=== PATIENT | female | born 1960 | race American Indian/Alaskan Native ===

== ENCOUNTER 2018-02-03 01:12 | Emergency (ER) | payer BC ==
[2018-02-03] MEDS ORDERED: NACL 0.9% 1000 ML 1,000 ML IV ONE (03:20)
[2018-02-03] MEDS ORDERED: TYLENOL ONE (03:27)
[2018-02-03] MEDS ORDERED: TYLENOL PO ONE (03:27)
[2018-02-03 03:38] LABS: Basophils # (Auto) 0.1 K/mm3 (0.0-0.1); Basophils % (Auto) 0.5 % (0.0-1.8); Eosinophils # (Auto) 0.1 K/mm3 (0.0-0.4); Eosinophils % (Auto) 0.9 % (0.0-4.3); Hematocrit 42.3 % (30.3-42.9); Hemoglobin 13.7 gm/dl (10.1-14.3); Lymphocytes # (Auto) 3.4 K/mm3 (1.2-5.4); Lymphocytes % (Auto) 26.3 % (13.4-35.0); Mean Corpuscular HGB Conc 32 % (30-34); Mean Corpuscular Hemoglobin 29 pg (28-32); Mean Corpuscular Volume 89 fl (79-97); Monocytes # (Auto) 0.9 K/mm3 (0.0-0.8); Monocytes % (Auto) 6.8 % (0.0-7.3); Platelet Count 235 K/mm3 (140-440); Red Blood Count 4.79 M/mm3 (3.65-5.03); Red Cell Distribution Width 14.5 % (13.2-15.2)
[2018-02-03 03:45] LABS: Bilirubin,Urine NEG (Negative); Blood,Urine NEG (Negative); Color,Urine Yellow (Yellow); Mucus,Urine FEW /HPF; Protein,Urine <15 mg/dL mg/dL (Negative); Urobilinogen,Urine < 2.0 mg/dL (<2.0)
[2018-02-03 03:59] LABS: Alanine Aminotransferase 21 units/L (7-56); Albumin 4.1 g/dL (3.9-5); BUN/Creatinine Ratio 35; Blood Urea Nitrogen 21 mg/dL (7-17); Calcium 9.4 mg/dL (8.4-10.2); Hemolysis Index 24; Lipase 21 units/L (13-60)
[2018-02-03] MEDS ORDERED: TORADOL IV ONE (04:45)
[2018-02-03] MEDS ORDERED: MORPHINE IV ONE (04:46)
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
[2018-02-03 07:42] LABS: Creatine Kinase MB 2.4 ng/mL (0.0-4.0)
[2018-02-03 08:49] VITALS: BP 172/83
== END 2018-02-03 08:50 | disposition home or self-care (01) ==
LOC: ED 01:12
DX: S30.1XXA Contusion of abdominal wall, initial encounter (principal); R07.89 Other chest pain; I10 Essential (primary) hypertension; V89.2XXA Person injured in unspecified motor-vehicle accident, traffic, initial encounter; Y93.89 Activity, other specified; Y92.488 Other paved roadways as the place of occurrence of the external cause; Y99.8 Other external cause status
CPT/HCPCS: 36415; 71260; 74177; 80053; 81001; 82550; 82553; 83690; 84484; 85025; 93005; 93010; 96374; 96375; 99284; J1885; J2270; J7030; Q9967

== ENCOUNTER 2018-02-10 11:54 | Outpatient (CLI) | payer BC ==
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
== END 2018-02-10 11:55 | disposition home or self-care (01) ==
LOC: XRAY 11:54
PROVIDERS: ATTEND Orthopaedic Surgery
DX: S09.90XA Unspecified injury of head, initial encounter (principal); I10 Essential (primary) hypertension
CPT/HCPCS: 70260